=== PATIENT | female | born 1965 | race Caucasian/White ===

== ENCOUNTER 2018-03-24 05:41 | Day surgery (SDC) | payer OTHER ==
[~2018-03-24 05:41] MED LIST: CLONAZEPAM0.5 MG PO; LIPITOR20 MG PO; NORVASC5 MG PO; TRAZODONE HCL50 MG PO; ZANTAC150 MG PO
== END 2018-03-24 11:20 | disposition home or self-care (01) ==
LOC: CIR.AMB 05:41
DX: M65.841 Other synovitis and tenosynovitis, right hand (principal)